=== PATIENT | male | born 1980 | race Caucasian/White ===

== ENCOUNTER 2018-01-27 16:48 | Emergency (ER) | payer OTHER ==
[~2018-01-27] VITALS: Ht 177.8 cm; Wt 105.2 kg
--- NOTE | ~2018-01-27 | EKG ---
[address] [address] ELECTROCARDIOGRAM REPORT Name: ELDON BENNETT II Room #: DEP [facility] [id number] Admission: 01/27/18 Attend Phys: Discharge: 01/27/18 Date of : 84 Report #: [id number] THIS REPORT FOR: //name// [facility] ED Test Date: 2018-01-27 Test Time: 17:26:45 Pat Name: ELDON BENNETT Department: Room: Gender: M Electrostatic Painter: KKODJOVI : 1980 Requested By: Ruiz Salgado Order Number: [id number] MD: Caio Wick Measurements Intervals [place] Rate: 79 P: 50 LA: 152 QRS: 23 QRSD: 88 T: 20 QT: 346 QTc: 397 Interpretive Statements Sinus rhythm No previous ECG available for comparison Electronically Signed On 01-27-2018 23:11:28 CDT by Caio Wick [email or web address] <ELECTRONICALLY SIGNED> By: Caio Wick MD 01/27/18 2311 1726 1726 Caio Wick MD /JOSE
[2018-01-27] MEDS ORDERED: NORVASC2.5 MG PO (17:08)
[2018-01-27] MEDS ORDERED: TOPROL XL25 MG PO (17:08)
[2018-01-27 17:24] LABS: HEMATOCRIT 46.2 % (42.0-52.0); HEMOGLOBIN 16.3 gm/dL (14.0-18.0); MCH 28.2 pg (26.0-34.0); MCHC 35.2 g/dL (28.0-37.0); RBC 5.77 mil/uL (4.50-6.00); RDW 12.5 % (10.5-14.5); WBC 11.4 thou/uL (4.0-11.0)
[2018-01-27 17:28] LABS: CALCIUM 9.4 mg/dL (8.5-10.1); POTASSIUM 3.9 mmol/L (3.5-5.1)
[2018-01-27] MEDS ORDERED: AUGMENTIN 875-1 EACH PO (17:59)
[2018-01-27 18:15] VITALS: BP 157/71
== END 2018-01-27 18:19 | disposition home or self-care (01) ==
LOC: ER 16:48
PROVIDERS: Emergency Medicine
DX: J01.00 Acute maxillary sinusitis, unspecified (principal); I10 Essential (primary) hypertension; K21.9 Gastro-esophageal reflux disease without esophagitis; Z90.49 Acquired absence of other specified parts of digestive tract; Z87.891 Personal history of nicotine dependence

== ENCOUNTER → 2018-06-05 | Outpatient (CLI) | payer OTHER ==
[~2018-06-05] VITALS: Ht 175.3 cm; Wt 106.6 kg
[~2018-06-05] MED LIST: ASPIR 8181 MG PO; AUGMENTIN 875-1 EACH PO; FISH OIL 1,001000 M2 PO; FLAX SEED OIL1000 MG PO; IBUPROFEN 200200 M1 PO; LOPRESSOR50 PO; NORVASC2.5 MG PO; NORVASC5 MG PO; PROTONIX40 M1 PO; TIZANIDINE HCL4 M1 PO; TOPROL XL25 MG PO; XANAX 0.25 MG0.25 MG PO; ZPAK PO
[2018-06-05 09:06] VITALS: BP 154/93
--- NOTE | 2018-06-05 09:54 | NUR ---
Pain Clinic Assessment: 1. History of Osteoarthritis: NO History of Rheumatoid Arthritis: NO 2. Height: 5 ft. 9 in. 175.3 cm. Weight: 235.0 lb. oz. 106.596 kg. Patient's BMI: 34.7 3. Vital Signs: BP: 154/93 Pulse: 83 Resp: 16 Temp: 02 Sat: 100 ECG Mon: 4. Pain Intensity: 9 5. Fall Risk: Dizziness: N Needs help standing or walking: N Fallen in the last 3 months: N Fall risk comments: 6. Patient on Blood Thinner: None 7. History of Hypertension: Y 8. Opioid Therapy greater than 6 weeks: N Opiate Contract Signed: 9. Risk Assessment Tool Provided: 9-HIGH RISK 10. Functional Assessment Tool: 50/70 11. Recreational Drug Use: Never Drug Type: Tobacco Use: Former Smoker Tobacco Type: Cigarettes Amount or Packs/day: 1 PPD How Many Years: 8 Alcohol Use: Unknown Frequency: Special Occasions Quant: FEW TIMES YEAR
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
== END ==
LOC: PAIN 07:00
DX: S39.012A Strain of muscle, fascia and tendon of lower back, initial encounter (principal); G89.29 Other chronic pain; R07.89 Other chest pain; M25.511 Pain in right shoulder; X58.XXXA Exposure to other specified factors, initial encounter; Y93.89 Activity, other specified; Y92.89 Other specified places as the place of occurrence of the external cause; Y99.8 Other external cause status

== ENCOUNTER 2019-10-18 18:02 | Emergency (ER) | payer OTHER ==
[~2019-10-18] VITALS: Ht 175.3 cm; Wt 113.4 kg
[2019-10-18] MEDS ORDERED: LOSARTAN-HCTZ1 EACH PO (18:36)
[2019-10-18 18:41] LABS: ABSOLUTE NEUTROPHILS 5.5 thou/uL (1.4-8.2); BASOPHILS 0.6 % (0.0-2.0); EOSINOPHILS 2.1 % (0.0-3.0); HEMATOCRIT 44.1 % (42.0-52.0); HEMOGLOBIN 15.3 gm/dL (14.0-18.0); LYMPHOCYTES 27.6 % (24.0-44.0); MCH 28.5 pg (26.0-34.0); MCHC 34.6 g/dL (28.0-37.0); MCV 82.3 fL (80.0-100.0); MONOCYTES 11.4 % (1.0-8.0); PLATELET COUNT 206 thou/uL (150-400); POLYS 58.3 % (36.0-66.0); RBC 5.36 mil/uL (4.50-6.00); WBC 9.4 thou/uL (4.0-11.0)
[2019-10-18 18:52] LABS: ANION GAP 11 mmol/L (7-16); BUN 10 mg/dL (7-18); CALCIUM 8.9 mg/dL (8.5-10.1); CHLORIDE 100 mmol/L (98-107); CO2 28 mmol/L (21-32); GLUCOSE 110 mg/dL (74-106); POTASSIUM 3.6 mmol/L (3.5-5.1); SODIUM 139 mmol/L (136-145)
[2019-10-18 19:00] LABS: TROPONIN-I <0.06 ng/mL (<0.06)
[2019-10-18 19:43] VITALS: BP 129/78
--- NOTE | 2019-10-20 11:46 | EKG ---
[facility] [address] [place] [address] ELECTROCARDIOGRAM REPORT Name: ELDON BENNETTN Room #: DEP [facility]#: [id number] Admission: 10/18/19 Attend Phys: Discharge: 10/18/19 Date of : 84 Report #: [id number] THIS REPORT FOR: cc: Suresh Escamilla David J. DO Couchonnal, Luis F. MD ~ THIS REPORT FOR: //name// [facility] ED Test Date: 2019-10-18 Test Time: 18:03:48 Pat Name: ELDON BENNETT Department: Room: Gender: Bilingual Patient Support Caseworker: CARISSA : 1980 Requested By: Ponce Chung Order Number: [id number] MD: Caio Wick Measurements Intervals [place] Rate: 106 P: 56 MS: 163 QRS: 43 QRSD: 93 T: 28 QT: 335 QTc: 445 Interpretive Statements Sinus tachycardia Left atrial enlargement Baseline wander in lead(s) V2 Compared to ECG 01/27/2018 17:26:45 Electronically Signed On 10-20-2019 11:45:12 CDT by Caio Wick [email or web address] <ELECTRONICALLY SIGNED> By: Caio Wick MD 10/20/19 1145 02 02 Caio Wick MD /EPI
== END 2019-10-18 19:43 | disposition home or self-care (01) ==
LOC: ER 18:02
PROVIDERS: Emergency Medicine
DX: I49.3 Ventricular premature depolarization (principal); G89.29 Other chronic pain; I10 Essential (primary) hypertension; K21.9 Gastro-esophageal reflux disease without esophagitis; Z87.891 Personal history of nicotine dependence; Z88.1 Allergy status to other antibiotic agents; Z88.0 Allergy status to penicillin; Z79.82 Long term (current) use of aspirin; Z79.899 Other long term (current) drug therapy; Z90.89 Acquired absence of other organs